=== PATIENT | female | born 1975 | race Caucasian/White ===

== ENCOUNTER 2017-12-14 09:21 | Outpatient (CLI) | payer OTHER | END 2017-12-14 15:54 | disposition home or self-care (01) | LOC: SONOGRAMA 09:21 → MAMO-SONO 11:15 → SONOGRAMA 15:54 | DX: R92.0 Mammographic microcalcification found on diagnostic imaging of breast (principal) ==

== ENCOUNTER → 2018-12-26 | Outpatient (CLI) | payer OTHER | END | disposition home or self-care (01) | LOC: MAMO-SONO 11:12 | DX: R92.0 Mammographic microcalcification found on diagnostic imaging of breast (principal); Z12.31 Encounter for screening mammogram for malignant neoplasm of breast ==

== ENCOUNTER 2019-02-07 13:38 | Outpatient (CLI) | payer OTHER | END 2019-02-07 13:43 | disposition home or self-care (01) | LOC: SONOGRAMA 13:38 | DX: E04.1 Nontoxic single thyroid nodule (principal) ==

== ENCOUNTER 2019-08-15 07:04 | Day surgery (SDC) | payer OTHER ==
[~2019-08-15 07:04] MED LIST: VITAMIN D5000 UNIT PO
== END 2019-08-15 19:20 | disposition home or self-care (01) ==
LOC: CIR.AMB 07:04
DX: K64.2 Third degree hemorrhoids (principal); K92.1 Melena

== ENCOUNTER 2022-01-18 14:06 | Emergency (ER) | payer OTHER ==
[~2022-01-18] VITALS: Ht 170.2 cm; Wt 74.8 kg
[2022-01-18] MEDS ORDERED: ARMOUR THYROID30 M1 PO (14:14)
== END 2022-01-18 21:11 | disposition home or self-care (01) ==
LOC: ER 14:06
DX: J40 Bronchitis, not specified as acute or chronic (principal); Z20.822 Contact with and (suspected) exposure to COVID-19; Z88.5 Allergy status to narcotic agent; Z88.6 Allergy status to analgesic agent